=== PATIENT | female | born 1945 | race Caucasian/White ===

== ENCOUNTER 2021-08-14 13:01 | Outpatient (CLI) | payer MEDICARE, OTHER | END 2021-08-14 13:02 | disposition home or self-care (01) | LOC: CSHMRI 13:01 | PROVIDERS: ATTEND Family Medicine | DX: R51.9 Headache, unspecified (principal); R26.81 Unsteadiness on feet; I67.82 Cerebral ischemia | CPT/HCPCS: 70551 ==